=== PATIENT | female | born 1955 | race Caucasian/White ===

== ENCOUNTER 2024-09-30 18:08 | Inpatient (IN) | payer MEDICARE, SELFPAY ==
[2024-09-30 18:26] VITALS: BP 136/92; PULSE 90; RESP 22; TEMP 38.3; O2SAT 92; BMI 37.7
--- NOTE | 2024-09-30 18:27 | ECG_ITS ---
APPROVED REPORT Exam: Resting ECG HR:86 bpm ECG Measurements Heart Rate 86 AXES NE 143 P 42 QRSd 90 QRS -3 QT 363 T 57 QTc 406 Conclusion SINUS RHYTHM MINIMAL ST DEPRESSION [0.025+ mV ST DEPRESSION] BORDERLINE ECG UNCONFIRMED REPORT Electronically signed by : ALVA COOK, 10/01/2024 05:51:26
--- NOTE | 2024-09-30 18:39 | XR_ITS ---
PROCEDURE INFORMATION: Exam: XR Chest Exam date and time: 09/30/2024 6:41 PM Age: 69 years old Clinical indication: Shortness of breath; Additional info: SOA TECHNIQUE: Imaging protocol: Radiologic exam of the chest. Views: 1 view. COMPARISON: No relevant prior studies available. FINDINGS: Lungs: Right upper lobe and bibasilar opacities may represent combination of atelectasis / subsegmental consolidations. Pleural spaces: Unremarkable. No pleural effusion. No pneumothorax. Heart/Mediastinum: Unremarkable. No cardiomegaly. Bones/joints: Unremarkable. IMPRESSION: Right upper lobe and bibasilar opacities may represent combination of atelectasis / subsegmental consolidations.
[2024-09-30 18:43] LABS: Basophils % 0.2 % (0.1-2.0); Hematocrit 35.1 % (37.0-47.0); Hemoglobin 12.4 g/dL (12.2-16.2); Lymphocytes # 0.7 K/mm3 (0.7-4.5); Lymphocytes % 6.3 % (10-50); Mean Corpuscular HGB Conc 35.3 g/dL (31.8-35.4); Mean Corpuscular Volume 84.8 fl (81-99); Mean Platelet Volume 9.7 fl (7.4-10.4); Monocytes # 0.9 K/mm3 (0.1-1.0); Monocytes % 8.3 % (1.7-9.3); Neutrophils # 9.3 K/mm3 (1.8-7.8); Neutrophils % 84.9 % (37.0-80.0); Platelet Count 239 K/mm3 (142-424); Red Blood Count 4.14 M/mm3 (4.20-5.40); Red Cell Distribution Width 12.7 % (11.5-17.5); White Blood Count 10.9 K/mm3 (4.8-10.8)
[2024-09-30 18:54] LABS: Lactate Venous 1.9 mmol/L (0.4-2.0); VBG Base Excess 1.9 mmol/L (-2.4-2.3); VBG HCO3 24.6 mmol/L (23-30); VBG Oxygen Saturation 97.8 % (50-70); VBG PCO2 29.9 mmol/L (35-51); VBG PH 7.53 mmol/L (7.31-7.41); VBG PO2 96.8 mmol/L (28-40); VBG Total CO2 25.5 mmol/L (23-27)
[2024-09-30 19:00] LABS: Alanine Aminotransferase 43 U/L (12-78); Albumin Level 3.7 g/dl (3.5-5.0); Albumin/Globulin Ratio 1.2 (1.1-1.8); Alkaline Phosphatase 62 U/L (38-126); Anion Gap 11.6 mEq/L (5-15); Aspartate Amino Transferase 51 U/L (14-36); Bilirubin,Total 0.8 mg/dl (0.2-1.3); Blood Urea Nitrogen 15 mg/dl (7-17); Calcium 8.5 mg/dl (8.4-10.2); Carbon Dioxide 24 mmol/L (22.0-30.0); Chloride 92 mmol/L (98-107); Creatinine Clearance Estimated 72 mL/min (50-200); Estimated Glomerular Filt Rate 62 ml/min (>60); GFR (African American) 75 ML/MIN (>60); Globulin 3.1 g/dL (1.3-3.2); Glucose 110 mg/dl (74-100); Sodium 125 mmol/L (136-145); Total Protein,Serum 6.8 g/dl (6.3-8.2)
[2024-09-30 19:05] VITALS: BP 115/66; PULSE 82; RESP 18; TEMP 36.6; O2SAT 94; BMI 39.5
[2024-09-30 19:11] LABS: Troponin I 0.04 ng/ml (0.00-0.034)
[2024-09-30 19:16] LABS: Potassium 2.6 mmoL/L (3.5-5.1)
[2024-09-30] MEDS: ACETAMINOPHEN 1,000MG/100ML VIAL 1000 MG IV (19:16)
[2024-09-30] MEDS: KETOROLAC 30MG/ML VIAL 15 MG IV (19:17)
[2024-09-30 19:23] LABS: Adenovirus,PCR Not Detected (NotDetected); Bordetella Pertussis Not Detected (NotDetected); Chlamydophila Pneumoniae, PCR Not Detected (NotDetected); Coronavirus 19, PCR Not Detected (NotDetected); Coronavirus 229E Not Detected (NotDetected); Coronavirus NL63 Not Detected (NotDetected); Coronavirus OC43 Not Detected (NotDetected); Coronovirus HKU1,PCR Not Detected (NotDetected); Human Metapneumovirus Not Detected (NotDetected); Influenza A, PCR Not Detected (NotDetected); Influenza AH1, 2009 Not Detected (NotDetected); Influenza AH1, PCR Not Detected (NotDetected); Influenza B, PCR Not Detected (NotDetected); Mycoplasma Pneumoniae, PCR Not Detected (NotDetected); Parainfluenza 1, PCR Not Detected (NotDetected); Parainfluenza 2, PCR Not Detected (NotDetected); Parainfluenza 3, PCR Not Detected (NotDetected); Parainfluenza 4, PCR Not Detected (NotDetected); Respiratory Syncytial Virus Not Detected (NotDetected); Rhinovirus/Enterovirus Not Detected (NotDetected)
[2024-09-30] MEDS: POTASSIUM CHLORIDE 20MEQ TAB 40 MEQ PO (19:24)
[2024-09-30] MEDS: IPRATROPIUM/ALBUTEROL 3 ML NEB 6 ML IH (19:24)
[2024-09-30] MEDS: 0.9 % SODIUM CHLORIDE 1000ML 1,370 ML 685 ML IV (19:25)
[2024-09-30] MEDS: KCl 10mEq/100ml 100 ML 100 MEQ IV ×2 (19:25→20:40)
[2024-09-30 19:45] LABS: Magnesium 1.9 mg/dl (1.6-2.3)
--- NOTE | 2024-09-30 19:46 | [facility].EDCP ---
Discharge Plan Disposition Patient Disposition: Admitted Clinical Impressions Clinical Impression: Sepsis due to pneumonia, Hyponatremia, Hypokalemia, Diarrhea, Elevated troponin Discharge ED Provider: Camila Ortiz HPI General Chief Complaint: Shortness of Breath/Dyspnea Stated Complaint: sent by phys-poss pneu, dehydrated, diarrhea, valencia Time Seen by Provider: 09/30/24 18:35 Mode of Arrival: Wheelchair Source of Information: Patient Description of Symptoms (Recalled from ER Triage Doc. by RN): Reports shortness of breath, possible dehydration, fever and diarrhea. States she started having a cough on Sunday that has gotten worse. Saw her PCP who swabbed her for COVID and Flu that were negative, then put her on antibiotic for possible pneumonia and right ear infection. Patient continuing to get worse so family brought her to the emergency department. History of Present Illness HPI narrative: This patient is a 69-year-old female with a history of hypertension presented to the emergency department for evaluation with concern for fever, cough, shortness of breath, diarrhea, possible dehydration. According to the patient and her family, she has been sick since Sunday and has progressively gotten worse. She saw her primary care provider yesterday who was concerned for pneumonia but was unable to get a chest x-ray. PCP started her on doxycycline with concern for pneumonia and ear infection, but today the patient is much worse. Given this, they called PCP who advised that she come to the ED because she may be dehydrated. No significant abdominal pain, nausea, vomiting, melena, or hematochezia. She states that she feels very poorly overall. Related Data Home Medications ?Medication ?Instructions ?Recorded ?Confirmed amlodipine 10 mg tablet 10 mg PO DAILY 09/30/24 09/30/24 doxycycline monohydrate 100 mg 100 mg PO BID 09/30/24 09/30/24 tablet ergocalciferol (vitamin D2) 1,250 1,250 mcg PO WEEKLY 09/30/24 09/30/24 mcg (50,000 unit) capsule fluticasone propionate 50 2 spray intranasal NEEDED PRN 09/30/24 09/30/24 mcg/actuation nasal Congestion spray,suspension hydralazine 50 mg tablet 50 mg PO BID 09/30/24 09/30/24 hydrochlorothiazide 25 mg tablet 25 mg PO DAILY 09/30/24 09/30/24 pravastatin 80 mg tablet 80 mg PO DAILY 09/30/24 09/30/24 promethazine-DM 6.25 mg-15 mg/5 mL 6.25 ml PO 5XDAY 09/30/24 09/30/24 oral syrup Allergies Allergy/AdvReac Type Severity Reaction Status Date / Time Sulfa (Sulfonamide Allergy Unknown Verified 09/30/24 18:31 Antibiotics) allergy reaction PFSH [facility] Disclaimer: The information contained in this section may have been updated after the patient was seen, as this information can be updated by other users. Social History (Updated 09/30/24 @ 22:05 by Andres Nicholas APRN) Smoking Status: Never smoker alcohol intake: never current occupational status: employed Travel in the last 8 weeks: None Have you lived/traveled outside [place] in past 30 days?: No Contact w/someone who lives/traveled outside [place] past 30 days?: No Exposure to someone with infectious disease in past 14 days?: No Do you have a fever (greater than 100.4 F or 38 C)?: Yes Have you tested positive for COVID-19: No Exposed to someone with COVID-19 in past 14 days?: No Do you have a sore throat?: No Do you have a cough?: Yes Do you have any weakness?: Yes Do you have any diarrhea?: Yes Are you experiencing any unusual bleeding?: No Do you have any muscle aches/pain?: Yes Do you have any abdominal pain?: Yes Are you experiencing loss of taste or smell?: No ROS Obtained: Yes All systems reviewed & no additional complaints except as documented Physical Exam General General appearance: alert Comment: Ill-appearing Head Head exam: atraumatic and normocephalic Eye Eye exam: Present normal appearance, PERRL and EOMI ENT ENT exam: Present mucous membranes dry and normal external ear exam Neck Neck exam: Present normal inspection, full ROM and trachea midline; Absent tenderness Chest Chest inspection: Present normal inspection and symmetric chest wall rise; Absent tenderness Respiratory Respiratory exam: Present wheezes, prolonged expiratory phase and other (Wheezes and rhonchi noted bilaterally, right greater than left. Tachypneic); Absent respiratory distress or stridor Cardiovascular Cardiovascular exam: Present regular rate and normal rhythm Abdominal Exam Abdominal exam: Present soft; Absent distention, tenderness or guarding Extremities Exam Extremities exam: Present normal inspection, full ROM and normal capillary refill; Absent tenderness or edema Back Exam Back exam: Present normal inspection and full ROM; Absent tenderness Neurological Exam Neurological exam: Present alert, oriented X3, CN II-XII intact and normal gait; Absent motor sensory deficit Psychiatric Psychiatric exam: Present normal affect and normal mood Skin Skin exam: Present warm and dry HEART Score HEART Score HEART Score assessment performed?: Yes History (anamnesis): Slightly suspicious ECG: Normal Age: >65 years Risk factors: 1-2 risk factors Troponin: 1-3x normal limit HEART Score: 4 Critical Care Critical Care Time Critical Care Time: Yes Attestation: On 09/30/24, the high probability of a clinically significant, sudden or life threatening deterioration of the following system(s) required my full and direct attention, intervention and personal management. The time I documented below is in addition to time spent performing reported procedures but includes the following listed in this critical care notation. Total Time Total Critical Care Time: 35 Medical Decision Making Chilo Inquiry Pt receiving controlled substance: No Vital Signs Vital Signs: 09/30/24 18:26 09/30/24 19:05 09/30/24 21:07 Temperature 101.0 F H 97.9 F Temperature Source Oral Oral Pulse Rate Pulse Rate [Radial] 90 82 Respiratory Rate 22 18 Blood Pressure Blood Pressure [Right Arm] 136/92 H 115/66 Blood Pressure Mean [Right Arm] 106 82 Blood Pressure Source [Right Arm] Automatic Cuff Automatic Cuff Blood Pressure Position [Right Arm] Sitting 02 Sat by Pulse Oximetry 92 L 94 L Oxygen Delivery Method Room Air Room Air Room Air 09/30/24 21:30 Temperature 98.1 F Temperature Source Pulse Rate 81 Pulse Rate [Radial] Respiratory Rate 18 Blood Pressure 122/52 L Blood Pressure [Right Arm] Blood Pressure Mean [Right Arm] Blood Pressure Source [Right Arm] Blood Pressure Position [Right Arm] 02 Sat by Pulse Oximetry Oxygen Delivery Method Room Air Lab Data Labs: Lab Results 09/30/24 18:31: Chlamy pneumoniae PCR Not detected, Adenovirus (PCR) Not detected, B. pertussis DNA (PCR) Not detected, Coronavirus OC43 (PCR) Not detected, Coronavirus HKU1 (PCR) Not detected, Coronavirus 229E (PCR) Not detected, SARS-CoV-2 (PCR) Not detected, Coronavirus NL63 (PCR) Not detected, Human Metapneumovir PCR Not detected, Influenza A (H1) PCR Not detected, Influ A (H1N1/09) PCR Not detected, Influenza A (H3) PCR Detected A, Influenza Type A (PCR) Not detected, Influenza Type B (PCR) Not detected, M. pneumoniae (PCR) Not detected, Parainfluenza 1 (PCR) Not detected, Parainfluenza 2 (PCR) Not detected, Parainfluenza 3 (PCR) Not detected, Parainfluenza 4 (PCR) Not detected, RSV (PCR) Not detected, Entero/Rhino (PCR) Not detected 09/30/24 18:35: WBC 10.9 H, RBC 4.14 L, Hgb 12.4, Hct 35.1 L, MCV 84.8, MCH 30.0, MCHC 35.3, RDW 12.7, Plt Count 239, MPV 9.7, Neut % (Auto) 84.9 H, Lymph % (Auto) 6.3 L, Frederick % (Auto) 8.3, Eos % (Auto) 0.0 L, Baso % (Auto) 0.2, Neut # (Auto) 9.3 H, Lymph # (Auto) 0.7, Frederick # (Auto) 0.9, Eos # (Auto) 0.0, Baso # (Auto) 0.0, D-Dimer 0.73 H, Sodium 125 L, Potassium 2.6 L*, Chloride 92 L, Carbon Dioxide 24, Anion Gap 11.6, BUN 15, Creatinine 0.90, Estimated Creat Clear 72, Estimated GFR 62, Est GFR ( Amer) 75, Glucose 110 H, Calcium 8.5, Magnesium 1.9, Total Bilirubin 0.8, AST 51 H, ALT 43, Alkaline Phosphatase 62, Troponin I 0.04 H, C-Reactive Protein 202.5 H, NT-Pro-B Natriuret Pep 1010 H, Total Protein 6.8, Albumin 3.7, Globulin 3.1, Albumin/Globulin Ratio 1.2, Procalcitonin 1.61, TSH 4.08, Thyroxine (T4) 10.7 09/30/24 18:39: VBG pH 7.53 H, VBG pCO2 29.9 L, VBG pO2 96.8 H, VBG HCO3 24.6, VBG Total CO2 25.5, VBG O2 Saturation 97.8 H, VBG Base Excess 1.9, VBG Lactic Acid 1.9 09/30/24 18:35 09/30/24 18:35 Response Orders (Tests/Meds): ED MEDICATIONS Generic Name Dose Route Start Last Admin Trade Name Aislinn PRN Reason Stop Dose Admin Acetaminophen 650 mg 09/30/24 21:18 Acetaminophen 325mg Tab PO 10/30/24 21:17 Q4HP PRN Fever or Mild Pain (1-3) Benzonatate 200 mg 09/30/24 23:03 Benzonatate 100mg Capsule PO 10/30/24 23:02 Q4HP PRN Cough Enoxaparin Sodium 40 mg 10/01/24 09:00 Enoxaparin 40mg/0.4ml Syringe SUBCUT 10/31/24 08:59 DAILY DENNIS Sodium Chloride 1,000 mls @ 100 mls/hr 09/30/24 21:30 Sod Chlor 0.9% 1000ml Bag IV 10/30/24 21:29 .Q10H DENNIS Ibuprofen 400 mg 09/30/24 21:18 Ibuprofen 400 Mg Tablet PO 10/30/24 21:17 Q6HP PRN Mild Pain (1-3) Ketorolac Tromethamine 15 mg 09/30/24 21:18 Ketorolac 30mg/Ml Vial IV 10/05/24 21:17 Q6HP PRN Moderate Pain (4-6) Ondansetron HCl 4 mg 09/30/24 21:18 Ondansetron 4mg/2ml Vial IV 10/30/24 21:17 Q8HP PRN Nausea Oseltamivir Phosphate 75 mg 09/30/24 21:30 Oseltamivir 75mg Capsule PO 10/05/24 09:01 BID DENNIS Sodium Chloride 10 ml 09/30/24 21:18 Sodium Chloride 0.9% 10ml Flush Syringe IV 10/30/24 21:17 NEEDED PRN Maintain IV Site Discontinued Medications Generic Name Dose Route Start Last Admin Trade Name Freq PRN Reason Stop Dose Admin Acetaminophen 1,000 mg 09/30/24 19:07 09/30/24 19:16 Acetaminophen 1,000mg/100ml Vial IV 09/30/24 19:08 1,000 mg ONCE ONE Administration Albuterol/Ipratropium 3 ml 09/30/24 18:39 09/30/24 22:21 Ipratropium/Albuterol 3 Ml Neb IH 09/30/24 18:40 Not Given ONCE ONE Albuterol/Ipratropium 6 ml 09/30/24 19:07 09/30/24 19:24 Ipratropium/Albuterol 3 Ml Neb IH 09/30/24 19:08 6 ml ONCE ONE Administration Lactated Ringer's 1,000 mls @ 999 mls/hr 09/30/24 19:04 09/30/24 22:46 Lactated Ringer's 1000 Ml Bag IV 09/30/24 20:04 Not Given .Q1H1M ONE Sodium Chloride 1,370 mls @ 685 mls/hr 09/30/24 19:17 09/30/24 19:25 Sod Chlor 0.9% 1000ml Bag 30 ml/kg infuse over 2 hr (1370 ml) 09/30/24 21:16 685 mls/hr IV Administration .Q2H ONE Potassium Chloride/Water 100 mls @ 100 mls/hr 09/30/24 19:18 09/30/24 20:40 Potassium Chloride 10meq/100ml Ivpb IV 09/30/24 21:17 100 mls/hr Q1H DENNIS Administration Ceftriaxone Sodium 2 gm/ 100 mls @ 200 mls/hr 09/30/24 20:01 09/30/24 20:16 Sodium Chloride IV 09/30/24 20:30 200 mls/hr ONCE ONE Administration Azithromycin 500 mg/ Sodium 250 mls @ 250 mls/hr 09/30/24 20:02 09/30/24 20:40 Chloride IV 09/30/24 20:03 250 mls/hr ONCE ONE Administration Ketorolac Tromethamine 15 mg 09/30/24 19:07 09/30/24 19:17 Ketorolac 30mg/Ml Vial IV 09/30/24 19:08 15 mg ONCE ONE Administration Potassium Chloride 40 meq 09/30/24 19:17 09/30/24 19:24 Potassium Chloride 20meq Tab PO 09/30/24 19:18 40 meq ONCE ONE Administration ORDERS Category Date Time Status XR chest portable Stat Exams 09/30/24 18:39 Completed BNP [NT Pro Brain Natriuretic Pep.] Stat Lab 09/30/24 18:35 Completed CRP [C-Reactive Protein] Stat Lab 09/30/24 18:35 Completed Complete Blood Count Auto Diff AMLAB Lab 10/01/24 06:00 Ordered Complete Blood Count Auto Diff Stat Lab 09/30/24 18:35 Completed Comprehensive Metabolic Panel AMLAB Lab 10/01/24 06:00 Ordered Comprehensive Metabolic Panel Stat Lab 09/30/24 18:35 Completed D-Dimer Stat Lab 09/30/24 18:35 Completed Full Resp Panel w/COVID ([facility]) Routine Lab 09/30/24 18:31 Completed Lactic Acid AMLAB Lab 10/01/24 06:00 Ordered MAG [Magnesium] Stat Lab 09/30/24 18:35 Completed Magnesium AMLAB Lab 10/01/24 06:00 Ordered Procalcitonin Stat Lab 09/30/24 18:35 Completed T4 (Thyroxine) Stat Lab 09/30/24 18:35 Completed TSH [Thyroid Stimulating Hormone] Stat Lab 09/30/24 18:35 Completed Troponin I Q3H Lab 09/30/24 21:59 Completed Troponin I Q3H Lab 10/01/24 00:45 Ordered Troponin I Stat Lab 09/30/24 18:35 Completed UA [Urinalysis and Microscopic] Stat Lab 09/30/24 19:06 Ordered Blood Culture Stat Micro 09/30/24 18:35 Received Urine Culture Stat Micro 09/30/24 19:06 Ordered VBG [Venous Blood Gas] AMLAB RT 10/01/24 06:00 Ordered Venous Blood Gas Stat RT 09/30/24 18:39 Completed ECG Data Tracing #1: Attestation: I reviewed this ECG and interpreted as documented below: ECG Narrative: Normal sinus rhythm with a ventricular rate of [address] changes concerning for STEMI. Normal intervals ECG initial impression date: 09/30/24 ECG initial impression time: 18:30 MDM Narrative Medical Decision Narrative: In summary, this patient is a 69-year-old female presenting to the Emergency Department for evaluation of fever, cough, shortness of breath, diarrhea, poor oral intake. Differential diagnoses considered include but are not limited to pneumonia, sepsis, viral syndrome, dehydration, electrolyte derangements, colitis. Ruling out the most morbid conditions drove assessment. It should be noted patient's history includes hypertension which may or may not be at goal therapy. This complicates all aspects of care by increasing patient's risk for morbidity. On exam, the patient is ill-appearing. She is febrile, tachypneic, adventitious lung sounds noted right greater than left. Workup included broad lab evaluation to evaluate for infectious, metabolic, cardiac abnormalities as well as chest x-ray and EKG. EKG obtained is reassuring.. I independently interpreted chest x-ray prior to the radiologist read and noted concerns for right sided pneumonia. Please see their read for final interpretation. Labs were obtained that demonstrated hyponatremia, hypokalemia. Sepsis bolus of IV fluids was ordered as well as IV potassium repletion. Patient also has very mildly elevated AST, mildly elevated troponin without acute STEMI noted on EKG. Mildly elevated BNP, but patient looks clinically dry in the setting of diarrhea and poor oral intake. Patient does have significant elevated CRP as well as a mild leukocytosis. D-dimer is very mildly elevated but is negative per years criteria without findings suggestive of DVT. On reassessment, patient had some improvement after administration of IV fluids. I also administered Toradol and acetaminophen for fever.. Given that she meets SIRS criteria with tachypnea, source of infection, fever, mild leukocytosis despite being on oral antibiotics already, I feel she would benefit from sepsis bolus as well as IV antibiotics. She was given IV Rocephin and azithromycin for community-acquired pneumonia. She has significant electrolyte derangements, including hyponatremia for which I started correction, which will need to be done very slowly with patient being monitored very closely. I also started repletion of her potassium IV given severe hypokalemia. At this time, patient was deemed to be appropriate for admission for sepsis, pneumonia, significant electrolyte derangements. I had an interactive discussion with the hospitalist who admitted the patient in stable condition.
[2024-09-30 19:49] LABS: C-Reactive Protein 202.5 mg/L (0-4)
[2024-09-30 19:50] LABS: D-Dimer 0.73 ug/mL (0.0-0.5)
[2024-09-30 20:01] LABS: NT Pro Brain Natriuretic Pep. 1010 pg/mL (0-125)
[2024-09-30 20:04] LABS: Procalcitonin 1.61 ng/mL (0.0-2.0); T4 (Thyroxine) 10.7 ug/dl (5.53-11.0)
[2024-09-30] MEDS: CEFTRIAXONE SODIUM 2 GM in 0.9 % SODIUM CHLORIDE 100 ML IV (20:16)
[2024-09-30 20:18] LABS: Thyroid Stimulating Hormone 4.08 uIU/mL (0.465-4.68)
[2024-09-30] MEDS: AZITHROMYCIN 500 MG in 0.9 % SODIUM CHLORIDE 250 ML 250 MG IV (20:40)
[2024-09-30 21:10] LABS: Influenza AH3,PCR Detected (NotDetected)
--- NOTE | 2024-09-30 21:11 | PC.NURSE ---
Critical lab called on respiratory panel Influenza A H3 positive
--- NOTE | 2024-09-30 21:25 | PC.NURSE ---
report called to DAMIÁN Galicia
[2024-09-30 21:30] VITALS: BP 122/52; PULSE 81; RESP 18; TEMP 36.7; O2SAT 94
--- NOTE | 2024-09-30 21:39 | PC.NURSE ---
Patient arrived to floor via wheelchair from ED at 21:38.
--- NOTE | 2024-09-30 21:48 | P.HP_ITS ---
<Statement entered by Yimi Washington MD - 10/01/24 18:24> Rounded on patient after nurse practitioner. Personally examined and interviewed patient. Agree with exam findings and care plan as documented. Review of patient's labs shows normal white count but chest imaging shows multifocal pneumonia. New oxygen requirement of 5 L. Continue antibiotics with ceftriaxone and Tamiflu. Necessitating inpatient admission. CBC, CMP, magnesium ordered for the morning. Kidney function normal with BUN 11, creatinine 0.8. Quite weak and fatigued. High risk for decompensation. 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 She notes she did not get her flu shot this year.. She also notes that she has coughing whenever she is working and the pain room at this school with the children.. She is a non-smoker. Patient began to feel bad several days ago., Developing cough shortness of breath now some chest wall pain. Patient did see her PCP, was swabbed for the flu and COVID that were negative. Has progressively worsened and come to the emergency room where she is now positive for flu A- H3. Chest x-ray shows a small area of pneumonia on right lung. Patient was started on doxycycline at that period of time. Patient notes she has not been in hospital overnight since giving childbirth more than 40 years ago. States that she is normally very healthy. [facility] Disclaimer: The information contained in this section may have been updated after the patient was seen, as this information can be updated by other users. Social History Smoking Status: Never smoker alcohol intake: never current occupational status: employed Travel in the last 8 weeks: None Other Medical History Have you received the Flu Vaccine for this season: No Have you received the Pneumonia Vaccine: No Review of Systems Review of Systems Review of systems:: pertinent systems reviewed and negative unless documented below Constitutional Constitutional: Reports as per HPI, Reports body ache(s) and Reports fatigue Comments: Patient does feel fluids at this time laying on bed. Eyes Eyes: Reports as per HPI ENT Ears, Nose, Mouth, and Throat: Reports as per HPI and Reports nasal congestion Comments: Denies sore throat *Cardiovascular Cardiovascular: Reports as per HPI and Reports dyspnea on exertion *Respiratory Respiratory: Reports dyspnea on exertion *Gastrointestinal Gastrointestinal: Reports as per HPI *Genitourinary Genitourinary: Reports as per HPI *Musculoskeletal Musculoskeletal: Reports as per HPI Comments: Having chest wall pain at upper left breast Integumentary/Breasts Skin/Breast: Reports skin pain and Reports breast pain *Neurologic Neurologic: Reports as per HPI Psychiatric Psychiatric: Reports as per HPI Endocrine Endocrine: Reports as per HPI and Reports fatigue Hematologic/Lymphatic Hematologic/Lymphatic: Reports as per HPI Allergic/Immunologic Allergic/Immunologic: Reports as per HPI Meds Home Medications and Allergies New Prescriptions to Start Prescriptions: Allergies Allergy/AdvReac Type Severity Reaction Status Date / Time Sulfa (Sulfonamide Allergy Unknown Verified 09/30/24 18:31 Antibiotics) allergy reaction Exam Data for Last 24 hours Vital signs and Labs for Last 24 Hours: Temp Pulse Resp BP Pulse Ox O2 Del Method 98.1 F 81 18 122/52 L 92 L Room Air 09/30/24 21:30 09/30/24 21:30 09/30/24 21:30 09/30/24 21:30 09/30/24 18:26 09/30/24 21:30 Laboratory Results - last 24 hr 09/30/24 18:31: Chlamy pneumoniae PCR Not detected, Adenovirus (PCR) Not detected, B. pertussis DNA (PCR) Not detected, Coronavirus OC43 (PCR) Not detected, Coronavirus HKU1 (PCR) Not detected, Coronavirus 229E (PCR) Not detected, SARS-CoV-2 (PCR) Not detected, Coronavirus NL63 (PCR) Not detected, Human Metapneumovir PCR Not detected, Influenza A (H1) PCR Not detected, Influ A (H1N1/09) PCR Not detected, Influenza A (H3) PCR Detected A, Influenza Type A (PCR) Not detected, Influenza Type B (PCR) Not detected, M. pneumoniae (PCR) Not detected, Parainfluenza 1 (PCR) Not detected, Parainfluenza 2 (PCR) Not detected, Parainfluenza 3 (PCR) Not detected, Parainfluenza 4 (PCR) Not detected, RSV (PCR) Not detected, Entero/Rhino (PCR) Not detected 09/30/24 18:35: WBC 10.9 H, RBC 4.14 L, Hgb 12.4, Hct 35.1 L, MCV 84.8, MCH 30.0, MCHC 35.3, RDW 12.7, Plt Count 239, MPV 9.7, Neut % (Auto) 84.9 H, Lymph % (Auto) 6.3 L, [place] % (Auto) 8.3, Eos % (Auto) 0.0 L, Baso % (Auto) 0.2, Neut # (Auto) 9.3 H, Lymph # (Auto) 0.7, [place] # (Auto) 0.9, Eos # (Auto) 0.0, Baso # (Auto) 0.0, D-Dimer 0.73 H, Sodium 125 L, Potassium 2.6 L*, Chloride 92 L, Carbon Dioxide 24, Anion Gap 11.6, BUN 15, Creatinine 0.90, Estimated Creat Clear 72, Estimated GFR 62, Est GFR ( Amer) 75, Glucose 110 H, Calcium 8.5, Magnesium 1.9, Total Bilirubin 0.8, AST 51 H, ALT 43, Alkaline Phosphatase 62, Troponin I 0.04 H, C-Reactive Protein 202.5 H, NT-Pro-B Natriuret Pep 1010 H , Total Protein 6.8, Albumin 3.7, Globulin 3.1, Albumin/Globulin Ratio 1.2, Procalcitonin 1.61, TSH 4.08, Thyroxine (T4) 10.7 09/30/24 18:39: VBG pH 7.53 H, VBG pCO2 29.9 L, VBG pO2 96.8 H, VBG HCO3 24.6, VBG Total CO2 25.5, VBG O2 Saturation 97.8 H, VBG Base Excess 1.9, VBG Lactic Acid 1.9 I & O for Last 24 hours: Intake & Output 09/28/24 09/29/24 09/30/24 10/01/24 05:59 05:59 05:59 05:59 Weight 193 lb Radiology Reports for the Last 24 Hours: Chest x-ray showing right lung pneumonia Constitutional Constitutional: moderate distress, obese and cooperative *Routine HEENT Exam Head: Present normocephalic and atraumatic Eye: Present EOMI, PERRL and normal accommodation ENT: Present mucous membranes moist, nares patent and external ear normal *Routine Neck Exam Neck: Present supple, full ROM and trachea midline Routine Chest/Breast/Axilla Exam Chest wall: Present tenderness Breast: Present tenderness (Upper left breast tenderness) *Routine Respiratory Exam Respiratory: Present decreased breath sounds, normal respiratory effort, able to speak in complete sentences and symmetric chest movement Comments: Coughing frequently during exam *Routine Cardiovascular Exam Cardiovascular: Present RRR, Normal S1, Normal S2 and tachycardia *Routine Abdominal Exam Abdominal: Present soft, normoactive bowel sounds and obese *Routine Rectal Exam Rectal:: deferred *Routine Genitalia Exam Genitalia:: deferred *Routine Extremities Exam Extremities: Present full ROM Routine Back/Spine/Pelvis Exam Back/Spine: Present full ROM Comments: No CVA tenderness patient is able to sit up with some assistance but does not to have any back injury *Routine Skin Exam Skin: Present intact, dry and warm Comments: Turgor is poor patient appears to be slightly dehydrated *Routine Neurological Exam Neurological: Present alert, oriented X3, CN II-XII intact, moving all extremities, normal tone, vision grossly intact, hearing grossly intact and normal speech Routine Psychiatric Exam Psychiatric: Present normal affect, normal thought process, good insight and good judgment H&P: Result Impressions 1. Flu A 2 pneumonia Imaging and Cardiology Chest x-ray: Status: image reviewed by me Additional comments: Right middle lobe pneumonia early development Assessment and Plan *Assessment and plan (1) Influenza A: Status: Acute Category: Medical Code(s): J10.1 - Influenza due to other identified influenza virus with other respiratory manifestations (2) Sepsis due to pneumonia: Status: Acute Category: Medical Code(s): J18.9 - Pneumonia, unspecified organism; A41.9 - Sepsis, unspecified organism (3) Viral syndrome: Status: Acute Category: Medical Code(s): B34.9 - Viral infection, unspecified (4) Hypokalemia: Status: Acute Category: Medical Code(s): E87.6 - Hypokalemia (5) Anterior chest wall pain: Status: Acute Category: Medical Code(s): R07.89 - Other chest pain Plan 1. Patient will be admitted to the floor. Patient will be kept on director of instrumental music and pulse ox continuous. Has been probably past time. But will start Tamiflu as the patient has pneumonia to see if we can slow down any viral replication as unsure as her immune system is responding at this time.. Provide fluids as needed also will continue antibiotic prophylactically for any other bacterial infection. Patient will be placed on a respiratory isolation. Will continue to monitor labs monitor vital signs for any changes and address any problems as they develop.
[2024-09-30] MEDS: 0.9 % SODIUM CHLORIDE 1000ML 1,000 ML 100 ML IV (22:00)
[2024-09-30] MEDS: OSELTAMIVIR 75MG CAPSULE 75 MG PO (22:00)
[2024-09-30 23:20] LABS: Troponin I 0.03 ng/ml (0.00-0.034)
[2024-10-01] VITALS: BP 108/53; PULSE 70; PULSE 75; RESP 17; TEMP 37.6; O2SAT 97
[2024-10-01 01:28] LABS: Troponin I 0.02 ng/ml (0.00-0.034)
[2024-10-01] MEDS: BENZONATATE 100MG CAPSULE 200 MG PO ×3 (02:47→20:11)
[2024-10-01 04:00] VITALS: BP 110/50; PULSE 75; PULSE 79; RESP 18; TEMP 37.1; O2SAT 95; BMI 40.3
--- NOTE | 2024-10-01 05:19 | PC.NURSE ---
New Admit. V/s, ox4, family at bedside. Pt desat during the night when sleeping, provider notified, 2LNC placed on pt. Contact and droplet precautions maintain for Flu A+. Plan of care ongoing.
[2024-10-01 06:33] LABS: Lactate Venous 1.1 mmol/L (0.4-2.0); VBG Base Excess -0.8 mmol/L (-2.4-2.3); VBG HCO3 23.4 mmol/L (23-30); VBG Oxygen Saturation 78.7 % (50-70); VBG PCO2 35.6 mmol/L (35-51); VBG PH 7.44 mmol/L (7.31-7.41); VBG PO2 41.9 mmol/L (28-40); VBG Total CO2 24.5 mmol/L (23-27)
[2024-10-01] MEDS: 0.9 % SODIUM CHLORIDE 1000ML 1,000 ML 100 ML IV ×2 (06:59→18:51)
[2024-10-01 07:12] LABS: Hematocrit 30.5 % (37.0-47.0); Lymphocytes # 0.9 K/mm3 (0.7-4.5); Mean Corpuscular HGB Conc 34.4 g/dL (31.8-35.4); Mean Corpuscular Hemoglobin 30.1 pg (27.0-31.2); Mean Corpuscular Volume 87.4 fl (81-99); Monocytes # 0.6 K/mm3 (0.1-1.0); Monocytes % 6.6 % (1.7-9.3); Neutrophils # 7.6 K/mm3 (1.8-7.8); Red Blood Count 3.49 M/mm3 (4.20-5.40); Red Cell Distribution Width 13.2 % (11.5-17.5)
[2024-10-01 07:15] LABS: Alanine Aminotransferase 36 U/L (12-78); Alkaline Phosphatase 47 U/L (38-126); Anion Gap 8.2 mEq/L (5-15); Aspartate Amino Transferase 44 U/L (14-36); Bilirubin,Total 0.5 mg/dl (0.2-1.3); Blood Urea Nitrogen 11 mg/dl (7-17); Carbon Dioxide 26 mmol/L (22.0-30.0); Chloride 99 mmol/L (98-107); Creatinine Clearance Estimated 36 mL/min (50-200); Estimated Glomerular Filt Rate 71 ml/min (>60); GFR (African American) 86 ML/MIN (>60); Globulin 2.9 g/dL (1.3-3.2); Glucose 95 mg/dl (74-100); Lactic Acid 0.8 mmol/L (0.7-2.1); Magnesium 1.8 mg/dl (1.6-2.3); Potassium 3.2 mmoL/L (3.5-5.1); Sodium 130 mmol/L (136-145); Total Protein,Serum 5.9 g/dl (6.3-8.2)
[2024-10-01 07:28] LABS: Basophils % 0.1 % (0.1-2.0); Mean Platelet Volume 10.2 fl (7.4-10.4); Platelet Count 210 K/mm3 (142-424); White Blood Count 9.2 K/mm3 (4.8-10.8)
[2024-10-01 08:00] VITALS: BP 117/56; PULSE 80; PULSE 81; RESP 20; RESP 32; TEMP 37.3; O2SAT 94; O2SAT 96
[2024-10-01 08:14] LABS: Hemoglobin 10.5 g/dL (12.2-16.2)
[2024-10-01] MEDS: ENOXAPARIN 40MG/0.4ML SYRINGE 40 MG SUBCUT ×2 (08:42→20:09)
[2024-10-01] MEDS: OSELTAMIVIR PHOSPHATE 6MG/ML ORAL SUSP 60ML 30 MG PO ×2 (08:55→20:09)
--- NOTE | 2024-10-01 09:08 | HMH.PHAINT1 ---
Pharmacy Intervention Comments: HOME MEDICATION LIST VERIFIED USING LIST FROM OUTPATIENT PHARMACY
[2024-10-01] MEDS: MAGNESIUM SULFATE IN WATER 2 GM/50 ML PIGGYBACK IV (10:44)
[2024-10-01] MEDS: POTASSIUM CHLORIDE 20MEQ TAB 40 MEQ PO ×2 (10:46→14:31)
[2024-10-01 11:09] LABS: Microscopic, Urine URINE MICROSCOPIC (MICROSCOPIC)
[2024-10-01 11:26] LABS: Appearance,Urine CLEAR (Clear); Bilirubin,Urine Negative (Negative); Blood, Urine Negative (Negative); Color,Urine YELLOW (Yellow); Glucose,Urine (UA) Negative (Negative); Ketones,Urine Negative (Negative); Leukocyte Esterase,Urine Negative (Negative); Nitrate,Urine Negative (Negative); Protein,Urine Negative (Negative); Urobilinogen,Urine 0.2 EU/dl (0.2)
[2024-10-01 11:53] LABS: Bacteria,Urine Trace /lpf; Squamous Epithelial Cell,Urine Occasional #/hpf (0-5)
[2024-10-01 12:00] VITALS: BP 158/80; PULSE 79; PULSE 80; RESP 18; TEMP 36.8; O2SAT 94
[2024-10-01 16:00] VITALS: BP 137/51; PULSE 70; PULSE 77; RESP 18; TEMP 36.8; O2SAT 96
[2024-10-01] MEDS: CEFTRIAXONE 1 GM 1 GM in 0.9 % SODIUM CHLORIDE 50 ML IV (16:25)
--- NOTE | 2024-10-01 17:29 | P.PN_ITS ---
Subjective *Date: 10/01/24 *Time: 19:13 Interval history: Still feeling quite weak. On 5 L oxygen on rounds. Denies nausea or vomiting. Denies chest pain. Still has rhonchorous and productive cough. Continues to require inpatient management. Alert and oriented x 3 Medical Exam Vital signs and Labs for Last 24 Hours: Vital Signs Temp Pulse Pulse Resp BP BP Pulse Ox 10/01/24 16:00 70 10/01/24 16:00 77 18 137/51 L 96 10/01/24 15:00 10/01/24 13:00 10/01/24 12:00 80 10/01/24 12:00 98.2 F 79 18 158/80 H 94 L 10/01/24 11:04 10/01/24 09:00 10/01/24 08:00 32 H 94 L 10/01/24 08:00 80 10/01/24 08:00 99.1 F 81 20 117/56 L 96 10/01/24 06:06 10/01/24 05:00 10/01/24 04:00 98.8 F 79 18 110/50 L 95 10/01/24 04:00 75 10/01/24 03:00 10/01/24 01:00 10/01/24 00:00 70 10/01/24 00:00 99.7 F H 75 17 108/53 L 97 09/30/24 23:00 09/30/24 21:30 98.1 F 81 18 122/52 L 09/30/24 21:07 09/30/24 19:05 97.9 F 82 18 115/66 94 L 09/30/24 18:26 101.0 F H 90 22 136/92 H 92 L O2 Del Method O2 Flow Rate 10/01/24 16:00 10/01/24 16:00 Room Air 10/01/24 15:00 Nasal Cannula 4 10/01/24 13:00 Nasal Cannula 5 10/01/24 12:00 10/01/24 12:00 Nasal Cannula 5 10/01/24 11:04 Nasal Cannula 5 10/01/24 09:00 Nasal Cannula 5 10/01/24 08:00 Nasal Cannula 5 10/01/24 08:00 10/01/24 08:00 Nasal Cannula 5 10/01/24 06:06 Nasal Cannula 2 10/01/24 05:00 Nasal Cannula 2 10/01/24 04:00 Nasal Cannula 2 10/01/24 04:00 10/01/24 03:00 Nasal Cannula 2 10/01/24 01:00 Nasal Cannula 2 10/01/24 00:00 10/01/24 00:00 Nasal Cannula 2 09/30/24 23:00 Room Air 09/30/24 21:30 Room Air 09/30/24 21:07 Room Air 09/30/24 19:05 Room Air 09/30/24 18:26 Room Air Intake and Output 10/01/24 10/01/24 10/01/24 07:59 15:59 23:59 Intake Total 1170 / 1170 Output Total 0 / 450 450 / 450 0 / 450 Balance 0 / 720 720 / 720 0 / 720 Intake: Intake, Oral Amount 270 / 270 Infusion Intake 900 / 900 0.9 % Sodium Chloride 1000ML 1, 900 / 900 000 ml @ 100 mls/hr IV .Q10H [facility] Rx#:[id number] Output: Output, Urine Amount 0 / 450 450 / 450 0 / 450 Other: Number of Voids 1 Number of Unmeasured Voids 1 1 1 Weight 93.071 kg Patient Weight 10/01/24 23:59 Weight 93.071 kg Laboratory Results - last 24 hr 09/30/24 11:00: Urine Color Yellow, Urine Appearance Clear, Urine pH 6.0, Ur Specific [place] 1.010, Urine Protein Negative, Urine Glucose (UA) Negative, Urine Ketones Negative, Urine Blood Negative, Urine Nitrate Negative, Urine Bilirubin Negative, Urine Urobilinogen 0.2, Ur Leukocyte Esterase Negative, Urine RBC None, Urine WBC 5-10, Ur Squamous Epith Cells Occasional, Urine Bacteria Trace 09/30/24 18:31: Chlamy pneumoniae PCR Not detected, Adenovirus (PCR) Not detected, B. pertussis DNA (PCR) Not detected, Coronavirus OC43 (PCR) Not detected, Coronavirus HKU1 (PCR) Not detected, Coronavirus 229E (PCR) Not detected, SARS-CoV-2 (PCR) Not detected, Coronavirus NL63 (PCR) Not detected, Human Metapneumovir PCR Not detected, Influenza A (H1) PCR Not detected, Influ A (H1N1/09) PCR Not detected, Influenza A (H3) PCR Detected A, Influenza Type A (PCR) Not detected, Influenza Type B (PCR) Not detected, M. pneumoniae (PCR) Not detected, Parainfluenza 1 (PCR) Not detected, Parainfluenza 2 (PCR) Not detected, Parainfluenza 3 (PCR) Not detected, Parainfluenza 4 (PCR) Not detected, RSV (PCR) Not detected, Entero/Rhino (PCR) Not detected 09/30/24 18:35: WBC 10.9 H, RBC 4.14 L, Hgb 12.4, Hct 35.1 L, MCV 84.8, MCH 30.0, MCHC 35.3, RDW 12.7, Plt Count 239, MPV 9.7, Neut % (Auto) 84.9 H, Lymph % (Auto) 6.3 L, [place] % (Auto) 8.3, Eos % (Auto) 0.0 L, Baso % (Auto) 0.2, Neut # (Auto) 9.3 H, Lymph # (Auto) 0.7, [place] # (Auto) 0.9, Eos # (Auto) 0.0, Baso # (Auto) 0.0, D-Dimer 0.73 H, Sodium 125 L, Potassium 2.6 L*, Chloride 92 L, Carbon Dioxide 24, Anion Gap 11.6, BUN 15, Creatinine 0.90, Estimated Creat Clear 72, Estimated GFR 62, Est GFR ( Amer) 75, Glucose 110 H, Calcium 8.5, Magnesium 1.9, Total Bilirubin 0.8, AST 51 H, ALT 43, Alkaline Phosphatase 62, Troponin I 0.04 H, C-Reactive Protein 202.5 H, NT-Pro-B Natriuret Pep 1010 H , Total Protein 6.8, Albumin 3.7, Globulin 3.1, Albumin/Globulin Ratio 1.2, Procalcitonin 1.61, TSH 4.08, Thyroxine (T4) 10.7 09/30/24 18:39: VBG pH 7.53 H, VBG pCO2 29.9 L, VBG pO2 96.8 H, VBG HCO3 24.6, VBG Total CO2 25.5, VBG O2 Saturation 97.8 H, VBG Base Excess 1.9, VBG Lactic Acid 1.9 09/30/24 21:59: Troponin I 0.03 10/01/24 00:45: Troponin I 0.02 10/01/24 06:00: VBG pH 7.44 H, VBG pCO2 35.6, VBG pO2 41.9 H, VBG HCO3 23.4, VBG Total CO2 24.5, VBG O2 Saturation 78.7 H, VBG Base Excess -0.8, VBG Lactic Acid 1.1 10/01/24 06:25: WBC 9.2, RBC 3.49 L, Hgb 10.5 L D, Hct 30.5 L, MCV 87.4, MCH 30.1, MCHC 34.4, RDW 13.2, Plt Count 210, MPV 10.2, Neut % (Auto) 83.0 H, Lymph % (Auto) 10.0, [place] % (Auto) 6.6, Eos % (Auto) 0.0 L, Baso % (Auto) 0.1, Neut # (Auto) 7.6, Lymph # (Auto) 0.9, [place] # (Auto) 0.6, Eos # (Auto) 0.0, Baso # (Auto) 0.0, Sodium 130 L, Potassium 3.2 L D, Chloride 99, Carbon Dioxide 26, Anion Gap 8.2, BUN 11 D, Creatinine 0.80, Estimated Creat Clear 36, Estimated GFR 71, Est GFR ( Amer) 86, Glucose 95, Lactate 0.8, Calcium 8.0 L, Magnesium 1.8, Total Bilirubin 0.5, AST 44 H, ALT 36, Alkaline Phosphatase 47, Total Protein 5.9 L, Albumin 3.0 L D, Globulin 2.9, Albumin/Globulin Ratio 1.0 L I & O for Labs for Last 24 Hours: Intake & Output 09/28/24 09/29/24 09/30/24 10/01/24 23:59 23:59 23:59 23:59 Intake Total 120 / 120 1170 / 1170 Output Total 0 / 0 450 / 450 Balance 120 / 120 720 / 720 Weight 91.342 kg 93.071 kg Microbiology Reports for the Last 24 Hours: Microbiology 10/01/24 10:59 Sputum - Expectorated Sputum Gram Stain - Final Constitutional: Present mild distress, obese, chronically ill appearing and cooperative Head: Present atraumatic and normocephalic ENT: Present normal exam Respiratory: Present prolonged expiratory phase and rhonchi; Absent accessory muscle use, wheezes or crackles Cardiac: Present Reg Rate and Rhythm Neuro: Present Grossly Intact, alert, awake, oriented x 3 and moves all extremities Assessment and Plan *Assessment and plan (1) Influenza A: Status: Acute Category: Medical Code(s): J10.1 - Influenza due to other identified influenza virus with other respiratory manifestations (2) Sepsis due to pneumonia: Status: Acute Category: Medical Code(s): J18.9 - Pneumonia, unspecified organism; A41.9 - Sepsis, unspecified organism (3) Viral syndrome: Status: Acute Category: Medical Code(s): B34.9 - Viral infection, unspecified (4) Hypokalemia: Status: Acute Category: Medical Code(s): E87.6 - Hypokalemia (5) Anterior chest wall pain: Status: Acute Category: Medical Code(s): R07.89 - Other chest pain (6) Hypertension: Status: Chronic Qualifiers: Hypertension type: primary hypertension Qualified Code(s): I10 - Essential (primary) hypertension Category: Medical Code(s): I10 - Essential (primary) hypertension Plan 69-year-old female who presented with shortness of breath. Found to have sepsis secondary to pneumonia from flu A. New oxygen requirement. Necessitating inpatient care. Continues to require 5 L oxygen. Continues inpatient care. Problems addressed as follows: Influenza A Pneumonia Sepsis -Continue supplemental oxygen as needed for goal sats greater 90%, currently on 4 L. -White count improved to 9.2, hemoglobin 10.5. Kidney function normal with BUN 11, creatinine 0.8. -Given multifocal pneumonia on chest x-ray per my review, will continue ceftriaxone 1 g daily. Continue Tamiflu renally dosed at 30 mg twice daily -Repeat CBC, CMP, magnesium ordered for the morning. Holding home blood pressure meds due to normotensive state and sepsis. Full code Regular diet Lovenox 40 mg subcu daily
[2024-10-01 20:00] VITALS: BP 136/60; PULSE 80; PULSE 85; RESP 18; TEMP 36.6; O2SAT 93
[2024-10-02] VITALS: BP 151/69; PULSE 70; PULSE 83; RESP 19; TEMP 36.5; O2SAT 99
[2024-10-02 04:00] VITALS: BP 144/59; PULSE 82; PULSE 90; RESP 17; TEMP 36.6; O2SAT 92; BMI 41.0
[2024-10-02] MEDS: 0.9 % SODIUM CHLORIDE 1000ML 1,000 ML 100 ML IV (05:01)
[2024-10-02 06:52] LABS: Basophils % 0.1 % (0.1-2.0); Eosinophils % 0.1 % (0.1-12.0); Hematocrit 31.3 % (37.0-47.0); Hemoglobin 10.5 g/dL (12.2-16.2); Lymphocytes # 1.4 K/mm3 (0.7-4.5); Lymphocytes % 19.3 % (10-50); Mean Corpuscular HGB Conc 33.5 g/dL (31.8-35.4); Mean Corpuscular Hemoglobin 30.3 pg (27.0-31.2); Mean Corpuscular Volume 90.2 fl (81-99); Mean Platelet Volume 9.9 fl (7.4-10.4); Monocytes # 0.5 K/mm3 (0.1-1.0); Monocytes % 6.4 % (1.7-9.3); Neutrophils # 5.1 K/mm3 (1.8-7.8); Neutrophils % 73.5 % (37.0-80.0); Platelet Count 238 K/mm3 (142-424); Red Blood Count 3.47 M/mm3 (4.20-5.40); Red Cell Distribution Width 13.3 % (11.5-17.5)
[2024-10-02 07:09] LABS: Alanine Aminotransferase 61 U/L (12-78); Albumin Level 2.8 g/dl (3.5-5.0); Alkaline Phosphatase 44 U/L (38-126); Anion Gap 7.1 mEq/L (5-15); Aspartate Amino Transferase 70 U/L (14-36); Bilirubin,Total 0.4 mg/dl (0.2-1.3); Blood Urea Nitrogen 10 mg/dl (7-17); Calcium 8.5 mg/dl (8.4-10.2); Carbon Dioxide 24 mmol/L (22.0-30.0); Chloride 110 mmol/L (98-107); Creatinine Clearance Estimated 36 mL/min (50-200); Estimated Glomerular Filt Rate 99 ml/min (>60); GFR (African American) 120 ML/MIN (>60); Globulin 2.8 g/dL (1.3-3.2); Glucose 91 mg/dl (74-100); Magnesium 2.2 mg/dl (1.6-2.3); Potassium 4.1 mmoL/L (3.5-5.1); Sodium 137 mmol/L (136-145); Total Protein,Serum 5.6 g/dl (6.3-8.2)
[2024-10-02 08:00] VITALS: BP 139/58; PULSE 78; PULSE 79; RESP 21; TEMP 36.5; O2SAT 98
[2024-10-02] MEDS: OSELTAMIVIR PHOSPHATE 6MG/ML ORAL SUSP 60ML 30 MG PO ×2 (08:37→21:05)
[2024-10-02] MEDS: ENOXAPARIN 40MG/0.4ML SYRINGE 40 MG SUBCUT ×2 (08:37→21:05)
[2024-10-02 12:00] VITALS: BP 169/62; PULSE 80; PULSE 83; RESP 20; O2SAT 98
[2024-10-02] MEDS: CEFTRIAXONE 1 GM 1 GM in 0.9 % SODIUM CHLORIDE 50 ML IV (12:46)
[2024-10-02] MEDS: BENZONATATE 100MG CAPSULE 200 MG PO ×2 (12:52→21:05)
[2024-10-02 16:00] VITALS: BP 167/77; PULSE 69; PULSE 80; RESP 20; O2SAT 98
--- NOTE | 2024-10-02 18:24 | PC.NURSE ---
a&ox4. pt has remained in the chair majority of the day. droplet precautions in place for flu+. requiring 3LNC. pt to be weaned as tolerated. tamiflu given this morning per sep. pt disgruntled this afternoon with this rn and courtesy tech due to delayed response time to call out r/t blood backing up in SL IV. this rn promptly entered pt room and flushed IV once being informed of need. educated pt on cause of blood in IV and reassured pt that all calls are responded to as soon as possible based on priority of need. pt also was disgruntled regarding administration of tessalon pearls, as she stated that they are a scheduled med and they were not given this shift. educated pt on order as entered by hospitalist and administration of PRN meds based on pt request as needed. pt verbalized understanding. no complaints of pain. no needs at this time. call light within reach. family at bedside.
--- NOTE | 2024-10-02 19:08 | EXP.ACUTE.PN ---
Subjective *Date: 10/02/24 *Time: 19:08 Interval history: Patient states she feels little better today. Weaned to 4 L on morning rounds. Will continue to aggressively wean today. Tolerating p.o. intake. No chest pain. No nausea or vomiting. Medical Exam Vital signs and Labs for Last 24 Hours: Vital Signs Temp Pulse Pulse Resp BP Pulse Ox O2 Del Method 10/02/24 18:56 Nasal Cannula 10/02/24 17:00 Nasal Cannula 10/02/24 16:00 69 10/02/24 16:00 80 20 167/77 H 98 Nasal Cannula 10/02/24 15:00 Nasal Cannula 10/02/24 13:00 Nasal Cannula 10/02/24 12:00 83 10/02/24 12:00 80 20 169/62 H 98 Nasal Cannula 10/02/24 11:00 Nasal Cannula 10/02/24 09:00 Nasal Cannula 10/02/24 08:00 Nasal Cannula 10/02/24 08:00 79 10/02/24 08:00 97.7 F 78 21 139/58 L 98 Nasal Cannula 10/02/24 06:41 Nasal Cannula 10/02/24 05:00 Nasal Cannula 10/02/24 04:00 90 10/02/24 04:00 97.8 F 82 17 144/59 H 92 L Nasal Cannula 10/02/24 03:00 Nasal Cannula 10/02/24 01:00 Nasal Cannula 10/02/24 00:00 70 10/02/24 00:00 97.7 F 83 19 151/69 H 99 Nasal Cannula 10/01/24 23:00 Nasal Cannula 10/01/24 21:00 Nasal Cannula 10/01/24 20:00 Nasal Cannula 10/01/24 20:00 80 10/01/24 20:00 97.8 F 85 18 136/60 93 L Nasal Cannula O2 Flow Rate 10/02/24 18:56 3 10/02/24 17:00 3 10/02/24 16:00 10/02/24 16:00 10/02/24 15:00 4 10/02/24 13:00 4 10/02/24 12:00 10/02/24 12:00 10/02/24 11:00 4 10/02/24 09:00 4 10/02/24 08:00 4 10/02/24 08:00 10/02/24 08:00 5 10/02/24 06:41 5 10/02/24 05:00 5 10/02/24 04:00 10/02/24 04:00 4 10/02/24 03:00 5 10/02/24 01:00 5 10/02/24 00:00 10/02/24 00:00 5 10/01/24 23:00 5 10/01/24 21:00 4 10/01/24 20:00 5 10/01/24 20:00 10/01/24 20:00 4 Intake and Output 10/02/24 10/02/24 10/02/24 07:59 15:59 23:59 Intake Total 750 / 2310 960 / 2310 600 / 2310 Output Total 0 / 0 0 / 0 0 / 0 Balance 750 / 2310 960 / 2310 600 / 2310 Intake: Intake, Oral Amount 150 / 1710 960 / 1710 600 / 1710 Intake, Total IV Amount 600 / 600 0.9 % Sodium Chloride 1000ML 1, 600 / 600 000 ml @ 100 mls/hr IV .Q10H [facility] Rx#:[id number] Output: Output, Urine Amount 0 / 0 0 / 0 0 / 0 Other: Number of Voids 0 Number of Unmeasured Voids 1 1 1 Number of Bowel Movements 1 Weight 94.71 kg Patient Weight 10/02/24 23:59 Weight 94.71 kg Laboratory Results - last 24 hr 10/02/24 06:20: WBC 7.0, RBC 3.47 L, Hgb 10.5 L, Hct 31.3 L, MCV 90.2, MCH 30.3, MCHC 33.5, RDW 13.3, Plt Count 238, MPV 9.9, Neut % (Auto) 73.5, Lymph % (Auto) 19.3, [place] % (Auto) 6.4, Eos % (Auto) 0.1, Baso % (Auto) 0.1, Neut # (Auto) 5.1, Lymph # (Auto) 1.4, [place] # (Auto) 0.5, Eos # (Auto) 0.0, Baso # (Auto) 0.0, Sodium 137, Potassium 4.1 D, Chloride 110 H, Carbon Dioxide 24, Anion Gap 7.1, BUN 10, Creatinine 0.60 D, Estimated Creat Clear 36, Estimated GFR 99, Est GFR ( Amer) 120 D, Glucose 91, Calcium 8.5, Magnesium 2.2 D, Total Bilirubin 0.4, AST 70 H D, ALT 61 D, Alkaline Phosphatase 44, Total Protein 5.6 L, Albumin 2.8 L, Globulin 2.8, Albumin/Globulin Ratio 1.0 L I & O for Labs for Last 24 Hours: Intake & Output 09/29/24 09/30/24 10/01/24 10/02/24 23:59 23:59 23:59 23:59 Intake Total 120 / 120 2513 / 3263 2310 / 2310 Output Total 0 / 0 450 / 450 0 / 0 Balance 120 / 120 2063 / 2813 2310 / 2310 Weight 91.342 kg 93.071 kg 94.71 kg Microbiology Reports for the Last 24 Hours: Microbiology 09/30/24 18:51 Blood Blood Culture - Preliminary NO GROWTH AFTER 48 HOURS 09/30/24 18:35 Blood Blood Culture - Preliminary NO GROWTH AFTER 24 HOURS 10/01/24 10:59 Sputum - Expectorated Sputum Gram Stain - Final Constitutional: Present mild distress, obese, chronically ill appearing and cooperative Head: Present atraumatic and normocephalic ENT: Present normal exam Respiratory: Present prolonged expiratory phase and rhonchi; Absent accessory muscle use, wheezes or crackles Cardiac: Present Reg Rate and Rhythm Neuro: Present Grossly Intact, alert, awake, oriented x 3 and moves all extremities Assessment and Plan *Assessment and plan (1) Influenza A: Status: Acute Category: Medical Code(s): J10.1 - Influenza due to other identified influenza virus with other respiratory manifestations (2) Sepsis due to pneumonia: Status: Acute Category: Medical Code(s): J18.9 - Pneumonia, unspecified organism; A41.9 - Sepsis, unspecified organism (3) Viral syndrome: Status: Acute Category: Medical Code(s): B34.9 - Viral infection, unspecified (4) Hypokalemia: Status: Acute Category: Medical Code(s): E87.6 - Hypokalemia (5) Anterior chest wall pain: Status: Acute Category: Medical Code(s): R07.89 - Other chest pain (6) Hypertension: Status: Chronic Qualifiers: Hypertension type: primary hypertension Qualified Code(s): I10 - Essential (primary) hypertension Category: Medical Code(s): I10 - Essential (primary) hypertension Plan 69-year-old female who presented with shortness of breath. Found to have sepsis secondary to pneumonia from flu A. New oxygen requirement. Necessitating inpatient care. Continues to require 4 L oxygen. Continues inpatient care. Problems addressed as follows: Influenza A Pneumonia Sepsis -Continue supplemental oxygen as needed for goal sats greater 90%, currently on 4 L. -White count normalized to 7, hemoglobin 10.5. Kidney function normal with BUN 10, creatinine 0.6. -Given multifocal pneumonia on chest x-ray per my review, will continue ceftriaxone 1 g daily. Continue Tamiflu renally dosed at 30 mg twice daily -Repeat CBC, CMP, magnesium ordered for the morning. Hypertension: Resume home amlodipine 10 mg daily, HCTZ 25 mg daily, and hydralazine 50 mg twice daily Full code Regular diet Lovenox 40 mg subcu daily
[2024-10-02 20:00] VITALS: BP 167/80; PULSE 70; PULSE 83; RESP 22; TEMP 36.7; O2SAT 3; O2SAT 96
[2024-10-03] VITALS: BP 139/60; PULSE 83; PULSE 90; RESP 18; TEMP 37; O2SAT 95
[2024-10-03 04:00] VITALS: BP 142/64; PULSE 70; PULSE 71; RESP 18; TEMP 36.8; O2SAT 95; BMI 40.6
--- NOTE | 2024-10-03 05:18 | PC.NURSE ---
Pt A&OX4. She has been weaned to 2L nasal cannula and tolerating well. On droplet precaution for flu. She has complained of a cough and was medicated per MAR. She has ambulated the room independently. She has remained NSR on tele. No complaints at this time, call light within reach
[2024-10-03 06:28] LABS: Basophils % 0.2 % (0.1-2.0); Eosinophils % 0.3 % (0.1-12.0); Hematocrit 30.2 % (37.0-47.0); Hemoglobin 10.3 g/dL (12.2-16.2); Lymphocytes # 1.7 K/mm3 (0.7-4.5); Lymphocytes % 26.9 % (10-50); Mean Corpuscular HGB Conc 34.1 g/dL (31.8-35.4); Mean Corpuscular Hemoglobin 30.4 pg (27.0-31.2); Mean Corpuscular Volume 89.1 fl (81-99); Mean Platelet Volume 9.9 fl (7.4-10.4); Monocytes # 0.6 K/mm3 (0.1-1.0); Monocytes % 10.3 % (1.7-9.3); Neutrophils # 3.8 K/mm3 (1.8-7.8); Neutrophils % 61.3 % (37.0-80.0); Platelet Count 267 K/mm3 (142-424); Red Blood Count 3.39 M/mm3 (4.20-5.40); Red Cell Distribution Width 13.2 % (11.5-17.5); White Blood Count 6.2 K/mm3 (4.8-10.8)
[2024-10-03 07:06] LABS: Alanine Aminotransferase 76 U/L (12-78); Albumin Level 2.9 g/dl (3.5-5.0); Albumin/Globulin Ratio 1.1 (1.1-1.8); Alkaline Phosphatase 46 U/L (38-126); Anion Gap 8.1 mEq/L (5-15); Aspartate Amino Transferase 63 U/L (14-36); Bilirubin,Total 0.5 mg/dl (0.2-1.3); Blood Urea Nitrogen 11 mg/dl (7-17); Calcium 8.1 mg/dl (8.4-10.2); Carbon Dioxide 25 mmol/L (22.0-30.0); Chloride 108 mmol/L (98-107); Creatinine Clearance Estimated 36 mL/min (50-200); Estimated Glomerular Filt Rate 99 ml/min (>60); GFR (African American) 120 ML/MIN (>60); Globulin 2.7 g/dL (1.3-3.2); Glucose 91 mg/dl (74-100); Potassium 4.1 mmoL/L (3.5-5.1); Sodium 137 mmol/L (136-145); Total Protein,Serum 5.6 g/dl (6.3-8.2)
[2024-10-03 07:09] LABS: Magnesium 1.9 mg/dl (1.6-2.3)
--- NOTE | 2024-10-03 07:27 | P.DS_ITS ---
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 She notes she did not get her flu shot this year.. She also notes that she has coughing whenever she is working and the pain room at this school with the children.. She is a non-smoker. Patient began to feel bad several days ago., Developing cough shortness of breath now some chest wall pain. Patient did see her PCP, was swabbed for the flu and COVID that were negative. Has progressively worsened and come to the emergency room where she is now positive for flu A- H3. Chest x-ray shows a small area of pneumonia on right lung. Patient was started on doxycycline at that period of time. Patient notes she has not been in hospital overnight since giving childbirth more than 40 years ago. States that she is normally very healthy. Hospital Course Hospital Course Hospital Course: 69-year-old female who presented with shortness of breath. Found to have sepsis secondary to pneumonia from flu A. New oxygen requirement. Necessitating i npatient care. Weaned to room air by day of discharge. Overall doing well. Given her clinical stability with COVID-19 air, will discharge home to complete Tamiflu. Problems addressed as follows: Influenza A Pneumonia Sepsis -Initially requiring supplemental oxygen, on 4 L admission. Initiated Tamiflu. White count improved to normal by day of discharge. Kidney function stable but needing renal dosing of Tamiflu due to creatinine clearance. Continue 30 mg twice daily to complete 5-day course total. Initially on antibiotics of ceftriaxone due to concern for pneumonia. Will transition back to doxycycline which was started prior to admission. Complete course of medication previously prescribed. Overall doing well. On room air. Discharge home in stable condition. Hypertension: Resume home amlodipine 10 mg daily, HCTZ 25 mg daily, and hydralazine 50 mg twice daily Exam Data for Last 24 hours Vital signs and Labs for Last 24 Hours: Temp Pulse Resp BP Pulse Ox O2 Del Method O2 Flow Rate 98.2 F 71 18 142/64 H 95 Nasal Cannula 2 10/03/24 04:00 10/03/24 04:00 10/03/24 04:00 10/03/24 04:00 10/03/24 04:00 10/03/24 06:37 10/03/24 06:37 Laboratory Results - last 24 hr 10/03/24 05:55: WBC 6.2, RBC 3.39 L, Hgb 10.3 L, Hct 30.2 L, MCV 89.1, MCH 30.4, MCHC 34.1, RDW 13.2, Plt Count 267, MPV 9.9, Neut % (Auto) 61.3, Lymph % (Auto) 26.9, [place] % (Auto) 10.3 H, Eos % (Auto) 0.3, Baso % (Auto) 0.2, Neut # (Auto) 3.8, Lymph # (Auto) 1.7, [place] # (Auto) 0.6, Eos # (Auto) 0.0, Baso # (Auto) 0.0, Sodium 137, Potassium 4.1, Chloride 108 H, Carbon Dioxide 25, Anion Gap 8.1, BUN 11, Creatinine 0.60, Estimated Creat Clear 36, Estimated GFR 99, Est GFR ( Amer) 120, Glucose 91, Calcium 8.1 L, Magnesium 1.9 D, Total Bilirubin 0.5, AST 63 H, ALT 76, Alkaline Phosphatase 46, Total Protein 5.6 L, Albumin 2.9 L, Globulin 2.7, Albumin/Globulin Ratio 1.1 I & O for Last 24 hours: Intake & Output 09/30/24 10/01/24 10/02/24 10/03/24 23:59 23:59 23:59 23:59 Intake Total 120 / 120 2513 / 3263 2310 / 2550 240 / 240 Output Total 0 / 0 450 / 450 0 / 0 Balance 120 / 120 2063 / 2813 2310 / 2550 240 / 240 Weight 91.342 kg 93.071 kg 94.71 kg 93.73 kg Microbiology Reports for the Last 24 Hours: Microbiology 09/30/24 18:35 Blood Blood Culture - Preliminary NO GROWTH AFTER 48 HOURS 09/30/24 18:51 Blood Blood Culture - Preliminary NO GROWTH AFTER 48 HOURS Constitutional Constitutional: no acute distress, morbidly obese and cooperative *Routine HEENT Exam Head: Present normocephalic Eye: Present EOMI and PERRL ENT: Present mucous membranes moist *Routine Neck Exam Neck: Present supple; Absent lymphadenopathy *Routine Respiratory Exam Respiratory: Present prolonged expiratory phase and rhonchi; Absent respiratory distress, wheezes or crackles *Routine Cardiovascular Exam Cardiovascular: Present RRR *Routine Abdominal Exam Abdominal: Present soft and normoactive bowel sounds; Absent tenderness *Routine Rectal Exam Patient deferred: visual exam *Routine Exam Patient deferred: external exam *Routine Extremities Exam Extremities: Absent cyanosis, clubbing or edema *Routine Skin Exam Skin: Present warm; Absent rash *Routine Neurological Exam Neurological: Present alert, oriented X3 and moving all extremities; Absent altered mental status Results Data Completed and Pending Labs on day of discharge: Labs from last 24 hours 10/03/24 05:55 WBC 6.2 RBC 3.39 L Hgb 10.3 L Hct 30.2 L MCV 89.1 MCH 30.4 MCHC 34.1 RDW 13.2 Plt Count 267 MPV 9.9 Neut % (Auto) 61.3 Lymph % (Auto) 26.9 [place] % (Auto) 10.3 H Eos % (Auto) 0.3 Baso % (Auto) 0.2 Neut # (Auto) 3.8 Lymph # (Auto) 1.7 [place] # (Auto) 0.6 Eos # (Auto) 0.0 Baso # (Auto) 0.0 Sodium 137 Potassium 4.1 Chloride 108 H Carbon Dioxide 25 Anion Gap 8.1 BUN 11 Creatinine 0.60 Estimated Creat Clear 36 Estimated GFR 99 Est GFR ( Amer) 120 Glucose 91 Calcium 8.1 L Magnesium 1.9 D Total Bilirubin 0.5 AST 63 H ALT 76 Alkaline Phosphatase 46 Total Protein 5.6 L Albumin 2.9 L Globulin 2.7 Albumin/Globulin Ratio 1.1 Preliminary micro results at discharge 09/30/24 18:35 Blood Culture - Preliminary Blood NO GROWTH AFTER 48 HOURS 09/30/24 18:51 Blood Culture - Preliminary Blood NO GROWTH AFTER 48 HOURS DS: Diagnosis Discharge Diagnosis (1) Influenza A: Status: Acute Code(s): J10.1 - Influenza due to other identified influenza virus with other respiratory manifestations (2) Sepsis due to pneumonia: Status: Acute Code(s): J18.9 - Pneumonia, unspecified organism; A41.9 - Sepsis, unspecified organism (3) Viral syndrome: Status: Acute Code(s): B34.9 - Viral infection, unspecified (4) Hypokalemia: Status: Acute Code(s): E87.6 - Hypokalemia (5) Anterior chest wall pain: Status: Acute Code(s): R07.89 - Other chest pain (6) Hypertension: Status: Chronic Code(s): I10 - Essential (primary) hypertension Qualifiers: Hypertension type: primary hypertension Qualified Code(s): I10 - Essential (primary) hypertension Meds Home Medications and Allergies Home Medications ?Medication ?Instructions ?Recorded ?Confirmed ?Type amlodipine 10 mg tablet 10 mg PO DAILY 09/30/24 09/30/24 History doxycycline monohydrate 100 mg 100 mg PO BID 09/30/24 09/30/24 History tablet ergocalciferol (vitamin D2) 1,250 1,250 mcg PO WEEKLY 09/30/24 09/30/24 History mcg (50,000 unit) capsule fluticasone propionate 50 2 spray intranasal NEEDED PRN 09/30/24 09/30/24 History mcg/actuation nasal Congestion spray,suspension hydralazine 50 mg tablet 50 mg PO BID 09/30/24 09/30/24 History hydrochlorothiazide 25 mg tablet 25 mg PO DAILY 09/30/24 09/30/24 History pravastatin 80 mg tablet 80 mg PO HS 09/30/24 10/01/24 History promethazine-DM 6.25 mg-15 mg/5 mL 6.25 ml PO Q4HP PRN Cough 09/30/24 10/01/24 History oral syrup benzonatate 100 mg capsule 200 mg (2 x 100 mg) PO Q6HP PRN 10/03/24 Rx Cough 3 days #20 caps oseltamivir 6 mg/mL oral 30 mg (5 mL) PO BID 3 days #25 mL 10/03/24 Rx suspension (Tamiflu) New Prescriptions to Start Prescriptions: Yimi Reis oseltamivir [Tamiflu] Yimi Washington Allergies Allergy/AdvReac Type Severity Reaction Status Date / Time Sulfa (Sulfonamide Allergy Unknown Verified 09/30/24 18:31 Antibiotics) allergy reaction Discharge Plan Disposition Patient Disposition: Home, Self-Care Condition: Fair Discharge Order Discharge Orders: Discharge Order (Routine); Ordered 10/03/24 Ordered By: Yimi Washington Follow up Plan Follow up with: Kimberley Aguirre [Primary Care Provider] - 10/10/24 1:00 pm Prescriptions/Medication Reconciliation: New benzonatate 100 mg Capsule 200 mg PO Q6HP PRN (Reason: Cough) 3 Days Qty: 20 0RF oseltamivir [Tamiflu] 6 mg/mL Suspension For Reconstitution 30 mg PO BID 3 Days Qty: 25 0RF Rx Instructions: complete 5 doses starting evening of 10/03 Continued promethazine-DM 6.25-15 mg/5 mL syrup 6.25 ml PO Q4HP PRN (Reason: Cough) Patient Comments: take 5ml by MOUTH every FOUR hours as needed FOR cough doxycycline monohydrate 100 mg tablet 100 mg PO BID Patient Comments: TAKE ONE TABLET BY MOUTH TWICE DAILY with MEAL FOR 10 DAYS FOR INFECTION pravastatin 80 mg tablet 80 mg PO HS Patient Comments: TAKE 1 TABLET BY MOUTH ONCE DAILY AT BEDTIME amlodipine 10 mg tablet 10 mg PO DAILY hydralazine 50 mg tablet 50 mg PO BID Patient Comments: TAKE 1 TABLET BY MOUTH TWICE DAILY FOR BLOOD PRESSURE hydrochlorothiazide 25 mg tablet 25 mg PO DAILY Patient Comments: TAKE 1 TABLET BY MOUTH ONCE DAILY ergocalciferol (vitamin D2) 1,250 mcg (50,000 unit) capsule 1,250 mcg PO WEEKLY Patient Comments: TAKE 1 CAPSULE BY MOUTH ONCE A WEEK fluticasone propionate 50 mcg/actuation spray,suspension 2 spray INTRANASAL NEEDED PRN (Reason: Congestion) Patient Comments: USE 1 SPRAY(S) IN EACH NOSTRIL TWICE DAILY Problem Reconciliation Problems Reviewed?: Yes Patient Discharge Instructions ACTIVITY: Continue current activity DIET: continue same diet Patient Instructions: Influenza, DI for Pneumonia -- Adult Print Language: [place] Providers Primary Care Provider: Kimberley Aguirre Admit Provider: Yimi Washington Attending Provider: Yimi Washington
[2024-10-03 08:00] VITALS: BP 142/69; PULSE 70; PULSE 82; RESP 20; TEMP 36.6; O2SAT 95
[2024-10-03] MEDS: AMLODIPINE 10MG TABLET 10 MG PO (08:21)
[2024-10-03] MEDS: ENOXAPARIN 40MG/0.4ML SYRINGE 40 MG SUBCUT (08:23)
[2024-10-03] MEDS: hydroCHLOROthiazide 25MG TABLET 25 MG PO (08:23)
[2024-10-03] MEDS: OSELTAMIVIR PHOSPHATE 6MG/ML ORAL SUSP 60ML 30 MG PO (08:26)
--- NOTE | 2024-10-03 09:50 | PC.NURSE ---
o2 saturation maintaining 93% an room air
[2024-10-03 12:00] VITALS: PULSE 70
[2024-10-03] MEDS: HYDRALAZINE HCL 25MG TABLET 50 MG PO (12:08)
--- NOTE | 2024-10-06 11:12 | SW/DCPLANNER ---
Spoke with patient on the phone. Patient stated that she is doing well just stil got the cough. Patient stated that she is aware of her upcoming appointment. Patient stated that she was able to get her new medicine picked up from clinic pharmacy. Patient stated that she has no concerns or questions at this time. Olman Maher
== END 2024-10-03 15:47 | disposition home or self-care (01) ==
LOC: ER 18:39 → 2ND 21:33
PROVIDERS: Nurse Practitioner Family; Admitting Provider Internal Medicine Adolescent Medicine; Emergency Provider Emergency Medicine; PCP Nurse Practitioner Family; Visit Provider Internal Medicine Adolescent Medicine
DX: A41.89 Other specified sepsis (principal); J18.9 Pneumonia, unspecified organism; J10.01 Influenza due to other identified influenza virus with the same other identified influenza virus pneumonia; E87.1 Hypo-osmolality and hyponatremia; Z68.41 Body mass index [BMI] 40.0-44.9, adult; J10.1 Influenza due to other identified influenza virus with other respiratory manifestations; I10 Essential (primary) hypertension; E87.6 Hypokalemia; D72.829 Elevated white blood cell count, unspecified; R06.82 Tachypnea, not elsewhere classified; R79.89 Other specified abnormal findings of blood chemistry; R19.7 Diarrhea, unspecified; R53.83 Other fatigue; N64.4 Mastodynia; R07.9 Chest pain, unspecified; E86.0 Dehydration; E66.01 Morbid (severe) obesity due to excess calories; Z88.2 Allergy status to sulfonamides; Z79.2 Long term (current) use of antibiotics; Z79.899 Other long term (current) drug therapy; Z99.81 Dependence on supplemental oxygen; Z28.39 Other underimmunization status
CPT/HCPCS: 36415; 71045; 80053; 81001; 82803; 83605; 83735; 83880; 84145; 84436; 84443; 84484; 85025; 85378; 86140; 87040; 87070; 87086; 87205; 87633; 93005; 99291; J0131; J0456; J0696; J1650; J1885; J3475; J3480; J7030; J7050; J7120; J7620

== ENCOUNTER 2025-02-04 09:17 | Outpatient (CLI) | payer MEDICARE, SELFPAY ==
--- NOTE | 2025-02-04 09:19 | CA_ITS ---
FINAL REPORT TECHNIQUE: Multiple transverse and longitudinal images were performed of right the femoral-popliteal deep venous system with augmentation and compression maneuvers. CLINICAL HISTORY: Right lateral calf pain FINDINGS: Right lower extremity duplex ultrasound demonstrates normal flow in the deep venous system. There is no abnormal echogenicity to suggest thrombus. There is normal compression and augmentation. IMPRESSION: No evidence of right DVT. Reviewed, Interpreted and Dictated by Sabrina Peacock MD Transcribed by Sailaja Donato Authenticated and [facility]
== END 2025-02-04 23:59 | disposition home or self-care (01) ==
LOC: RT 09:17
PROVIDERS: PCP Nurse Practitioner Family; Visit Provider Nurse Practitioner Family
DX: M79.661 Pain in right lower leg (principal)
CPT/HCPCS: 93971